=== PATIENT | female | born 1970 | race Caucasian/White ===

== ENCOUNTER 2021-02-01 08:35 | Inpatient (IN) ==
--- NOTE | 2021-01-17 12:21 | PAT Medication Instructions ---
Medication Instructions Date of Service January 17, 2021 Home Medications cyanocobalamin (vitamin B-12) 1,000 mcg MONTHLY ergocalciferol (vitamin D2) [Vitamin D2] 1,250 mcg PO WK multivitamin 1 tab PO QAM omeprazole 20 mg PO QAM sertraline 100 mg PO HS Continue as directed cyanocobalamin (vitamin B-12) 1,000 mcg MONTHLY ergocalciferol (vitamin D2) [Vitamin D2] 1,250 mcg PO WK (just do not take if scheduled on day of surgery) DO NOT take the morning of surgery multivitamin 1 tab PO QAM Take morning of surgery With a small sip of water, OTHERWISE NOTHING TO EAT OR DRINK AFTER MIDNIGHT: omeprazole 20 mg PO QAM Take evening before surgery sertraline 100 mg PO HS Other Notes If you have any questions please call us at [phone] or [phone] or [phone] or [phone]
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
[2021-01-18 11:41] LABS: Appearance Urine Clear (Clear); Basophils # (auto) 0.01 K/uL (0-0.2); Basophils % (auto) 0.2 %; Bilirubin Urine Negative (Negative); Blood Urine Trace-intact (Negative); Color Urine Yellow; Eosinophils % (auto) 1.6 %; Glucose Urine UA Negative (Negative); Hematocrit (blood only) 38.6 % (37-47); Hemoglobin 12.5 g/dL (12.0-16.0); Immature Granulocytes # (auto) 0.01 K/uL (0.00-0.02); Immature Granulocytes % (auto) 0.2 %; Ketones Urine Negative (Negative); Leukocyte Esterase Urine Negative (Negative); Lymphocytes # (auto) 2.19 K/uL (1.2-3.4); Lymphocytes % (auto) 35.6 %; Mean Corpuscular Hemoglobin 27.9 pg (25-34); Mean Corpuscular Hgb Conc 32.4 g/dL (32-36); Mean Corpuscular Volume 86.2 fL (80-100); Mean Platelet Volume 10.1 fL (7.4-10.4); Monocytes # (auto) 0.26 K/uL (0.11-0.59); Monocytes % (auto) 4.2 %; Neutrophils # (auto) 3.58 K/uL (1.4-6.5); Neutrophils % (auto) 58.2 %; Nitrite Urine Negative (Negative); Platelet Count 387 K/uL (130-400); Protein Urine Negative (Negative); RDW Coefficient of Variation 13.3 % (11.5-14.5); RDW Standard Deviation 41.8 fL (36.4-46.3); Red Blood Count 4.48 M/uL (4.2-5.4); Specific Gravity Urine 1.025 (1.000-1.030); Urobilinogen Urine Negative (Negative); White Blood Count 6.15 K/uL (4.8-10.8); pH Urine 5.5 (4.5-7.5)
--- NOTE | 2021-01-18 11:51 | XRay Report ---
XR chest Pre-admission PA/Lat HISTORY: Preop. COMPARISON: None. FINDINGS: The lungs are clear. Cardiac silhouette is normal in size. No pleural effusions. No pneumot horax. IMPRESSION: No acute process. ACT 112: Negative or not required by law. Electronically signed by: Cj Valdes M.D. 01/18/2021 11:50 AM
[2021-01-18 11:54] LABS: Partial Thromboplastin Time 25.9 Seconds (21.0-31.0); Prothrombin Time 9.7 Seconds (9.0-12.0)
[2021-01-18 12:19] LABS: BUN Creatinine Ratio 13.5 (10-20); Calcium 8.8 mg/dl (8.5-10.1); Est GFR (African American) 102.9 ml/min; Est GFR (Non-African American) 88.8 ml/min; Potassium 4.1 mmol/L (3.5-5.1)
[2021-01-18 12:31] LABS: Bacteria Urine Negative (Negative); RBC Urine 0-4 /hpf (0-4); WBC Urine 0-5 /hpf (0-5)
[~2021-02-01 08:35] MED LIST: ACETAMINOPHEN 500 MG TAB PO SCH; CeleBREX 200 MG CAP PO SCH; GABAPENTIN 900 MG DOSE PO SCH; LIDOCAINE 2% 2 ML VIAL/AMP(20MG/ML) INFIL ONE; LR 15ML/HR IV SCH; MIDAZOLAM HCL 1 MG/ML 2ML VIAL ONE; ONDANSETRON INJ 2 MG/ML 2 ML VIAL ONE; PROPOFOL IV EMULSION 10 MG/ML 20 ML VIAL IV ONE; ROCURONIUM BROMIDE 10 MG/ML 5 ML VIAL IV ONE; SUCCINYLCHOLINE CHLORIDE 20 MG/ML 10 ML VIAL IV ONE; fentaNYL citrate 100 MCG/2 ML VIAL ONE
--- NOTE | 2021-02-01 12:38 | History & Physical Bridge Note ---
Date of Service February 01, 2021 History & Physical Bridge Note I have examined the patient, reviewed the History & Physical and in the interval since the performance of the History & Physical I have noted the following changes of clinical significance: no changes noted
--- NOTE | 2021-02-01 12:40 | History & Physical Report ---
Date of Service February 01, 2021 Assessment & Plan (1) Neurogenic claudication due to lumbar spinal stenosis: Admission and Anticipated Discharge Date Admission Date: L3-L4 decompression fusion History of Present Illness Chief Complaint: Back and leg pain Primary Care Provider: Liliana Chau DO This is a 51-year-old course of nonoperative care she is here for procedure. Allergies Allergy/AdvReac Type Severity Reaction Status Date / Time No Known Allergies Allergy Unverified 02/01/21 09:54 Home Medications Medication Instructions Recorded Confirmed Type cyanocobalamin (vitamin B-12) 1,000 mcg MONTHLY 01/17/21 02/01/21 History ergocalciferol (vitamin D2) 1,250 mcg PO WK 01/17/21 02/01/21 History [Vitamin D2] multivitamin 1 tab PO QAM 01/17/21 02/01/21 History omeprazole 20 mg PO QAM 01/17/21 02/01/21 History sertraline 100 mg PO HS 01/17/21 02/01/21 History Past Med/Surg History Medical History (Updated 02/01/21 @ 12:40 by Toro Mckeon DO) Anxiety and depression Degenerative disc disease GERD (gastroesophageal reflux disease) History of kidney stones Hx of sleep apnea h/o CPAP use, lost weight, had rpt sleep study and ruled no dx of MORRIS anymore. Morbid obesity Surgical History Family history of reaction to anesthesia GRANDMOTHER-NAUSEA H/O gastric bypass 2009 History of anal fissures REPAIRED History of cholecystectomy History of colonoscopy [place] teeth removed Family History Other No significant family history Social History Smoking Status: Never smoker Second Hand Exposure: Yes (IN THE PAST); Do You Dip or Chew Tobacco: No; Hx Alcohol Use: No Hx Substance Use: No Preferred Language: Lao Wet End Supervisor Required: No Beliefs That Will Affect Care: None Current Living Situation: Significant Other Feels Safe at Home: Yes Safety Concerns: Feels Safe At This Time Assistive Devices: Contacts and Glasses Physical Exam Physical Exam: Patient is alert and oriented Heart regular rate and rhythm Lungs clear to auscultation Results & Data ([facility]) Vital Signs (Past 12 Hours) Vital Signs Temp Pulse Resp BP Pulse Ox 02/01/21 09:59 37.1 C 70 18 138/68 96
[2021-02-01] MEDS ORDERED: ATROPINE SULFATE 0.1 MG/ML 10ML SYR IV PRN (12:49)
[2021-02-01] MEDS ORDERED: ONDANSETRON INJ 2 MG/ML 2 ML VIAL IV PRN ×2 (12:49→15:57)
[2021-02-01] MEDS ORDERED: fentaNYL citrate 100 MCG/2 ML VIAL IV PRN (12:49)
[2021-02-01] MEDS ORDERED: ePHEDrine sulfate 50 MG/ML AMP IV PRN (12:49)
[2021-02-01] MEDS ORDERED: HYDROmorphone INJ 1 MG/ML SYRINGE IV PRN ×2 (12:49→15:57)
[2021-02-01] MEDS ORDERED: BUPIVACAINE/EPINEPHRINE 0.5% MPF 1:200,000 30 ML VIAL ONE (12:54)
[2021-02-01] MEDS ORDERED: DEXAMETHASONE SOD INJ 4 MG/ML VIAL ONE (13:32)
[2021-02-01] MEDS ORDERED: ONDANSETRON INJ 2 MG/ML 2 ML VIAL ONE (13:32)
[2021-02-01] MEDS ORDERED: HYDROmorphone INJ 2 MG/ML SYR/VIAL ONE (14:00)
[2021-02-01] MEDS ORDERED: NEOSTIGMINE METHYLSULFATE 1 MG/ML 10ML VIAL ONE (14:05)
[2021-02-01] MEDS ORDERED: GLYCOPYRROLATE 0.2 MG/ML VIAL ONE (14:05)
[2021-02-01] MEDS ORDERED: FLOSEAL HEMOSTATIC MATRIX 10ML TOP ONE (14:28)
--- NOTE | 2021-02-01 14:34 | Operative Report ---
Post Operative Report Pre & Post Diagnosis Operation Date: 02/01/21 10:35 Pre-Op Diagnosis: Neurogenic claudication due to lumbar spinal stenosis Spondylolisthesis L3-L4 Morbid obesity Post-Op Diagnosis: Same I identified the patient and participated in the time-out.: Yes Procedure Operation Date: 02/01/21 10:35 Actual Procedures #1 lumbar decompression with bilateral medial facetectomies and foraminotomies L2-3 and L3-4. #2 posterior spinal fusion L3-4. #3 placement posterior instrumentation L3-4. #4 interbody fusion L3-4. #5 placement peek cage 12 x 26 mm at L3-4. #6 placement locally harvested morselized autograft in the posterior gutters. #7 placement of I factor and vitoss in the interbody space and posterior lateral gutters. Surgeon Toro Mckeon, DO Hearing Officer Jennifer Evangelista Estimated Blood Loss 200 Findings See Below The patient is 5 foot 9 inches tall weighing over 122 kg with a BMI in excess of 39. Patient's body habitus did create significant technical difficulty requirin g her deepest retractors and longus instruments in order to perform her procedure. This had at least 50% increase to the operative time. Specimens None Indications This is a 51-year-old female who presents with above-mentioned diagnosis after failing since course of nonoperative care is here for the above-mentioned procedure. Description of Procedure Patient was met with identified informed consent obtained. Patient was then taken to the operative suite underwent a patient placed in a prone position the [place] table top Oswaldo frame. All bony prominences well-padded eyes inspected to ensure no external pressure placed upon the. This point the lumbar spine was prepped and draped in a sterile fashion. Sharp dissection with the assistance of Bovie cautery performed down to and exposing the lamina and transverse processes of L3 and L4 bilaterally. Obvious bilateral pars defect identified. A complete laminectomy of L3 partial laminectomy of L2 was then performed including bilateral medial facetectomies and foraminotomies addressing severe spinal stenosis. Pedicle screws were then placed in L3 and L4 bilaterally with assistance of fluoroscopy and the proper sized ciara placed. By way of a transforaminal approach on the right complete discectomy of L3-L4 was performed endplates curetted to subcortical bleeding bone and a 12 x 26 mm peek cage filled with I factor tapped in position. The rods were then locked into final position bilaterally. The transverse processes of L3 and L4 burred to subcortically bone. I factor combined with the toss and locally harvested morselized autograft combined in the posterior lateral gutters. 15 round JESUS drain inserted. The incision was then closed with 1 Vicryl in the fascia 2-0 Vicryl subcutaneously and 4 Monocryl for final skin closure. Steri-Strip sterile dressings placed. Patient waken taken to PACU stable condition. Please note spinal cord monitoring was utilized at the procedure no changes noted. Lastly Jennifer Evangelista was present at the entire procedure about the patient pos itioning complex portions of the surgery and final skin closure. I attest to the content of the Intraoperative Record and any orders documented therein. Any exceptions are noted below.
--- NOTE | 2021-02-01 15:13 | Fluoroscopy Report ---
FL lumbar spine 2-3V HISTORY: 51 years-old Female L3-L4 DECOMPRESSION AND FUSION COMPARISON: None TECHNIQUE: 2 spot fluoroscopic images of the lumbar spine were obtained utilizing 13.9 seconds fluoro scopy time FINDINGS: Laminectomy, discectomy with posterior interbody ciara and screw fusion at what is labeled the L3-L4 in terspace. The hardware appears intact. No unexpected opaque foreign body identified. IMPRESSION: Fluoroscopic assistance as above. ACT 112: Negative or not required by law. The above report was generated using voice recognition software. It may contain grammatical, syntax o r spelling errors. Electronically signed by: Seth Andersen M.D. 02/01/2021 3:11 PM
--- NOTE | 2021-02-01 15:39 | Anesthesiology Progress Note ---
Date of Service February 01, 2021 Anesthesia Post Procedure Vital Signs Vital Signs: Temp Pulse Pulse Resp BP BP Pulse Ox 02/01/21 15:25 36.3 C L 75 15 107/70 96 02/01/21 15:15 69 12 114/59 L 97 02/01/21 15:05 67 12 107/58 L 95 02/01/21 14:55 74 16 119/70 96 02/01/21 14:48 36.2 C L 80 16 117/69 98 02/01/21 09:59 37.1 C 70 18 138/68 96 Pain Intensity Back: Pain Intensity: 3 Transfer of Care Handoff Completed per policy Notes Mental Status: alert / awake / arousable Patient Amnestic to Procedure: Yes Nausea / Vomiting: adequately controlled Pain: adequately controlled Airway Patency, RR, SpO2: stable & adequate BP & HR: stable & adequate Hydration State: stable & adequate Anesthetic Complications: no major complications apparent and Pt Satisfied with anesthetic care
[2021-02-01] MEDS ORDERED: LORazepam 0.5 MG TAB PO PRN (15:57)
[2021-02-01] MEDS ORDERED: LORazepam 0.5 MG/1 ML VIAL IV PRN (15:57)
[2021-02-01] MEDS ORDERED: FAMOTIDINE 20 MG TAB PO PRN (15:57)
[2021-02-01] MEDS ORDERED: ONDANSETRON 4 MG OD TAB PO PRN (15:57)
[2021-02-01] MEDS ORDERED: ALUMINUM/MAGNESIUM SUSP 30 ML UDC PO PRN (15:57)
[2021-02-01] MEDS ORDERED: NALOXONE HCL 0.4 MG/1 ML VIAL/CARP IV PRN (15:57)
[2021-02-01] MEDS ORDERED: diphenhydrAMINE Capsule 25 MG CAP PO PRN (15:57)
[2021-02-01] MEDS ORDERED: DO NOT ADMINISTER PNEUMOCOCCAL VACCINE PRN (15:57)
[2021-02-01] MEDS ORDERED: METOCLOPRAMIDE HCL INJ 5 MG/ML 2 ML VIAL IV PRN (15:57)
[2021-02-01] MEDS ORDERED: hydrOXYzine HCl 25 MG TAB PO PRN (15:57)
[2021-02-01] MEDS ORDERED: DO NOT ADMINISTER FLU VACCINE PRN (15:57)
[2021-02-01] MEDS ORDERED: PROMETHAZINE HCL 12.5 MG in SODIUM CHLORIDE 0.9% 50 ML IV PRN (15:57)
[2021-02-01] MEDS ORDERED: ACETAMINOPHEN 500 MG TAB PO PRN (15:57)
[2021-02-01] MEDS ORDERED: MAGNESIUM HYDROXIDE SUSP 30 ML UDC PO PRN (15:57)
[2021-02-01] MEDS ORDERED: HYDROmorphone INJ 0.5 MG/0.5 ML SYR IV PRN (15:57)
[2021-02-01] MEDS ORDERED: SOD PHOSPHATE/SOD BIPHOSPHATE ENEMA 132 ML BTL PR PRN (15:57)
[2021-02-01] MEDS ORDERED: ACETAMINOPHEN 1,000 MG/100 ML VIAL IV PRN (15:57)
[2021-02-01] MEDS: oxyCODONE HCL IR 5 MG TAB (IMMEDIATE RELEASE) PO PRN (17:40)
[2021-02-01] MEDS: LACTATED RINGER'S 1,000 ML IV SCH ×2 (17:42→23:19)
[2021-02-01] MEDS: ceFAZolin 2000MG 2,000 MG/15 ML SYR IV SCH (20:10)
[2021-02-01] MEDS: SERTRALINE HCL 100 MG TABLET PO SCH (20:14)
[2021-02-01] MEDS: DOCUSATE SODIUM/SENNA 50/8.6MG TAB PO SCH (20:14)
[2021-02-02] MEDS: ceFAZolin 2000MG 2,000 MG/15 ML SYR IV SCH (05:30)
[2021-02-02] MEDS: POLYETHYLENE (MIRALAX) 17 GM PACK PO SCH ×4 (05:30→23:29)
[2021-02-02 07:14] LABS: Basophils # (auto) 0.01 K/uL (0-0.2); Basophils % (auto) 0.1 %; Eosinophils # (auto) 0.01 K/uL (0-0.5); Eosinophils % (auto) 0.1 %; Hemoglobin 11.5 g/dL (12.0-16.0); Immature Granulocytes # (auto) 0.03 K/uL (0.00-0.02); Immature Granulocytes % (auto) 0.3 %; Lymphocytes # (auto) 1.25 K/uL (1.2-3.4); Lymphocytes % (auto) 10.4 %; Mean Corpuscular Hemoglobin 28.2 pg (25-34); Mean Corpuscular Hgb Conc 31.9 g/dL (32-36); Mean Corpuscular Volume 88.2 fL (80-100); Mean Platelet Volume 9.9 fL (7.4-10.4); Monocytes # (auto) 0.58 K/uL (0.11-0.59); Monocytes % (auto) 4.8 %; Neutrophils # (auto) 10.09 K/uL (1.4-6.5); Neutrophils % (auto) 84.3 %; Platelet Count 377 K/uL (130-400); RDW Coefficient of Variation 13.4 % (11.5-14.5); RDW Standard Deviation 43.4 fL (36.4-46.3); Red Blood Count 4.08 M/uL (4.2-5.4); White Blood Count 11.97 K/uL (4.8-10.8)
[2021-02-02] MEDS: PANTOprazole 40 MG TAB PO SCH (07:35)
[2021-02-02] MEDS: oxyCODONE HCL IR 5 MG TAB (IMMEDIATE RELEASE) PO PRN ×3 (07:35→20:02)
[2021-02-02 07:45] LABS: BUN Creatinine Ratio 13.5 (10-20); Calcium 9.3 mg/dl (8.5-10.1); Creatinine Clr Calc Pharmacy 124.4 ml/min; Est GFR (Non-African American) 93.1 ml/min; Potassium 4.1 mmol/L (3.5-5.1)
[2021-02-02] MEDS: traMADol HCL 50 MG TABLET PO PRN (10:52)
--- NOTE | 2021-02-02 12:26 | Orthopedic Progress Note ---
Date of Service February 02, 2021 Assessment & Plan (1) Neurogenic claudication due to lumbar spinal stenosis: Admission and Anticipated Discharge Date Admission Date: February 01, 2021 At this time we will continue physical therapy monitor her JESUS output anticipate discharge home in the next few days. Subjective Back pain controlled leg pain markedly improved. Physical Exam Physical Exam: Patient is good strength testing appears comfortable. Results & Data ([facility]) Vital Signs (Past 12 Hours) Vital Signs Temp Pulse Resp BP BP Pulse Ox 02/02/21 07:23 36.9 C 75 16 107/72 02/02/21 03:46 36.7 C 52 L 18 92/61 L 94
[2021-02-02] MEDS: DOCUSATE SODIUM/SENNA 50/8.6MG TAB PO SCH (19:58)
[2021-02-02] MEDS: SERTRALINE HCL 100 MG TABLET PO SCH (19:58)
[2021-02-03] MEDS: oxyCODONE HCL IR 5 MG TAB (IMMEDIATE RELEASE) PO PRN ×3 (01:16→12:21)
[2021-02-03] MEDS: POLYETHYLENE (MIRALAX) 17 GM PACK PO SCH ×4 (06:23→23:03)
--- NOTE | 2021-02-03 08:23 | Orthopedic Progress Note ---
Date of Service February 03, 2021 Assessment & Plan (1) Neurogenic claudication due to lumbar spinal stenosis: Admission and Anticipated Discharge Date Admission Date: February 01, 2021 At this time continue physical therapy monitor her JESUS output anticipate discharge home tomorrow. Subjective Back pain controlled leg pain improved Physical Exam Physical Exam: Patient is in the chair at the bedside. Is good strength testing. Appears comfortable. Results & Data ([facility]) Vital Signs (Past 12 Hours) Vital Signs Temp Pulse Resp BP Pulse Ox 02/03/21 06:11 37.6 C H 87 18 122/68 93 02/03/21 01:12 105/58 L 02/02/21 23:12 37.2 C 89 16 85/51 L 91
[2021-02-03] MEDS: dexAMETHasone 8 MG in SYRINGE 0 ML IV SCH (08:49)
[2021-02-03] MEDS: PANTOprazole 40 MG TAB PO SCH (08:49)
[2021-02-03] MEDS ORDERED: bisacodyL 10 MG SUPP PR PRN (14:35)
[2021-02-03] MEDS: traMADol HCL 50 MG TABLET PO PRN (19:53)
[2021-02-03] MEDS: DOCUSATE SODIUM/SENNA 50/8.6MG TAB PO SCH (19:54)
[2021-02-03] MEDS: SERTRALINE HCL 100 MG TABLET PO SCH (19:54)
[2021-02-04] MEDS: POLYETHYLENE (MIRALAX) 17 GM PACK PO SCH (05:35)
[2021-02-04] MEDS: traMADol HCL 50 MG TABLET PO PRN (07:50)
[2021-02-04] MEDS: dexAMETHasone 8 MG in SYRINGE 0 ML IV SCH (07:51)
[2021-02-04] MEDS: PANTOprazole 40 MG TAB PO SCH (07:51)
--- NOTE | 2021-02-04 11:12 | Discharge Summary ---
Date of Service February 04, 2021 Admission HPI Per Admitting Provider This is a 51-year-old course of nonoperative care she is here for procedure. Principal Diagnosis Lumbar spinal stenosis with neurogenic claudication Discharge Data Allergies Allergy/AdvReac Type Severity Reaction Status Date / Time No Known Allergies Allergy Unverified 02/01/21 09:54 Procedures Performed Operation Date: 02/01/21 10:35 Actual Procedures p L3-L4 Decompression Fusion with Insertion of Interbody, Spinal Cord Monitoring(Not Applicable) - Toro Mckeon DO Ordered Studies 02/01/21 10:35 [place] lumbar spine 2-3V Routine Hospital Course (1) Neurogenic claudication due to lumbar spinal stenosis: Patient with lumbar decompression fusion trial exhausting orthopedic for possibly. Postop day 1 she was up at night ambulating. She rested postop day #2 on postop day #3 pain was well controlled JESUS drain decreasing probably. Excellent strength testing. Subsequent discharge home. Discharge orders and instructions found the chart for further review. Total Time Total Time Spent Total Time Spent (In Minutes): 20 minutes Discharge Plan Discharge Items Patient Disposition: Home - Self-Care Reason For Visit: Spinal Stenosis, Lumbar Region without Neurogenic Discharge Diagnosis: Lumbar spinal stenosis with neurogenic claudication Activity: As commented below Non-emergency contact: Primary Care Provider Call non-emergency contact if: you have any medication questions Follow-up/Referrals: Liliana Chau DO [Primary Care Provider] - Diet: Regular Addtl Attending Provider Instructions: ACTIVITY RECOMMENDATIONS: SELF CARE INSTRUCTIONS AFTER THORACIC/LUMBAR FUSIONS 1. You may walk to your tolerance. It is good exercise for your legs and back. Expect some back and intermittent leg aches and pains. 2. You may perform "counter-top" level activities (make a sandwich, dominga with a project, etc.). 3. No bending or lifting of more than 10 pounds or back twisting of any nature (roll like a log when turning in bed). 4. You may ride in a car for 20-30 minutes at a time. No driving until after your first visit with your doctor. 5. Frequent changes of position and restricting sitting to 30 minutes at a time will help limit the amount of back spasms and stiffness you may experience. 6. You may discontinue the use of ambulatory aids (cane, crutches, etc.) once your strength and confidence allow. 7. You may tumbling and rolling supervisor the shower and let water strike your incision when you arrive home at least once daily. Do not take a tub bath, sit in a hot tub or go into a swimming pool until after your first recheck in the office. SPECIAL CARE INSTRUCTIONS: VERY IMPORTANT TO READ AND REVIEW A. Your surgical incision has been closed with a cosmetic suture under the skin that will dissolve in about 6 weeks. In 14 days, you can use a pair of clean scissors and cut the suture that is left outside of the skin at the ends of your incision. 1. The small skin tapes can be removed 7 days after surgery if they have not fallen off by that point. 2. You may keep the wound open to air as much as possible to promote healing after post-op day number 5 unless told otherwise by your doctor. 3. If you think the wound looks like it is becoming infected (redness or worsening drainage) and/or you are experiencing fever, chill or worsening back pain and muscle spasms, contact the office so that we may evaluate you as soon as possible. B. Complications are uncommon, but please contact us if you have any signs or symptoms of: 1. wound infection (fever higher than 102.5 degrees F, redness, separation of wound, drainage, or increasing pain from the incision) 2. blood clots in legs (pain, swelling, redness and warmth in legs) 3. urinary tract infection (fever higher than 102.5 degrees F, burning upon urination or increased frequency of urination) 4. nerve problems (inability to walk on your toes or heels, numbness, loss of bowel or bladder control) 5. any other symptoms that concern you C. Please call the office at if you have any concerns or questions about your operation or recovery. D. No smoking! Smoking drastically decreases the chance of a solid fusion. E. Do not take any anti-inflammatory medications (Indocin, Advil, Motrin, Aspirin, Naprosyn, etc.) as these may inhibit the chance of a solid fusion. Tylenol is okay to take for pain. MANAGING PAIN AFTER SPINAL SURGERY 1. Narcotic medication is intended for short-term use and will be provided for surgical pain. Surgical pain usually lasts for a period of 4-6 weeks. Narcotic medication includes Percocet, Vicodin, Darvocet, Tylenol #3 or Lortab. 2. Longer-term pain is more appropriately treated with non-narcotic medication such as Tylenol ES. 3. Muscle spasm is not appropriately treated with narcotics. Muscle relaxers such as Soma, Flexeril or Skelaxin can be used along with Tylenol ES. 4. Remember that we all live with some "aches and pains". This is not unusual or uncommon after an injury or as we get older. a. Back pain is expected and may include muscle spasms for 4 to 6 weeks after surgery. The pain should gradually improve. If the pain worsens for no apparent reason, please contact the office. b. Intermittent leg pain may also be experienced and should not be concerned about unless it worsens for no apparent reason. If so, please contact the office. 5. We will provide appropriate medication within the normal guidelines of their prescribed use. We will also be very cautious and aware of potential abuse and extended duration of patients' medication needs. a. Pain medications are for your comfort and to assist with sleep and rest so that the tissue can heal. They are not provided in order to return to normal activity and should not be used through the day. To do so or worsening pain at night can result from ongoing tissue damage and development of tolerance to the prescribed medicine. 6. Please allow 2-3 days to process refills. Prescriptions will not be mailed but must be picked up at the office. FOLLOW UP VISIT: Keep your scheduled follow-up appointment. Any questions, please call the office at . Pending Studies at Discharge: No Stand-Alone Forms: [facility], Smoking Cessation Medications and DC Order Prescriptions: New tramadol 50 mg tablet 50 mg PO Q6H PRN (Reason: pain, moderate) Qty: 30 RF: 0 oxycodone 5 mg tablet 5 mg PO Q6H PRN (Reason: pain, severe) Qty: 30 RF: 0 Continued multivitamin Tablet 1 tab PO QAM RF: 0 sertraline 100 mg Tablet 100 mg PO HS RF: 0 ergocalciferol (vitamin D2) [Vitamin D2] 1,250 mcg (50,000 unit) Capsule 1,250 mcg PO WK RF: 0 cyanocobalamin (vitamin B-12) 1,000 mcg/mL Syringe 1,000 mcg MONTHLY RF: 0 omeprazole 20 mg Tablet,Delayed Release (Dr/Ec) 20 mg PO QAM RF: 0 Discharge Orders: Discharge Order (Routine); Ordered 02/04/21 Ordered By: Toro Mckeon Admission Data Admit Date/Time: 02/01/21 15:02 Attending Provider: Toro Mckeon Admit Provider: Toro Mckeon Primary Care Provider: Liliana Chau
== END 2021-02-04 13:33 | disposition home or self-care (01) | DRG 455 ==
LOC: ASU 08:35 → 3E 15:02